=== PATIENT | male | born 1995 ===

== ENCOUNTER 2021-04-11 16:47 | Emergency (ER) | payer SELFPAY ==
[~2021-04-11] VITALS: Ht 172.7 cm; Wt 79.5 kg
[2021-04-11 17:26] VITALS: BP 114/86
== END 2021-04-11 20:31 | disposition left against medical advice (07) ==
LOC: EMS 16:47
DX: J02.9 Acute pharyngitis, unspecified (principal); Z53.21 Procedure and treatment not carried out due to patient leaving prior to being seen by health care provider